=== PATIENT | male | born 1965 | race Caucasian/White ===

== ENCOUNTER → 2018-01-19 | Outpatient (CLI) | payer OTHER ==
[2018-01-19 13:11] LABS: CHOLESTEROL LEVEL 253 MG/DL (<200); CHOLESTEROL RISK RATIO 6.325 (<5); HDL CHOLESTEROL 40 MG/DL (>40); LDL CHOLESTEROL 162.2 MG/DL (<100); NON-HDL-C 213 MG/DL; TRIGLYCERIDES LEVEL 254 MG/DL (<150)
== END ==
LOC: M ADAMS 08:18
DX: E78.5 Hyperlipidemia, unspecified (principal)
CPT/HCPCS: 80061

== ENCOUNTER 2018-10-23 00:37 | Observation (INO) | payer OTHER ==
[~2018-10-23] VITALS: Ht 168.9 cm; Wt 101.7 kg
[2018-10-23] MEDS ORDERED: BENI40TA26 PO (00:41)
[2018-10-23] MEDS ORDERED: SPIR-10 PO (00:41)
[2018-10-23 02:52] LABS: BASO # 0.1 10^3/uL (0.0-0.2); BASO % 1.1 % (0.0-1.0); EOS # 0.2 10^3/uL (0.0-0.50); EOS % 3.3 % (0.0-3.0); HEMATOCRIT 42.5 % (42.0-52.0); HEMOGLOBIN 14.5 g/dl (13.5-17.5); LYMPH # 1.4 10^3/uL (1.5-4.5); LYMPH % 23.4 % (24.0-44.0); MEAN CORPUSCULAR HEMOGLOBIN 30.3 pg (27.0-33.0); MEAN CORPUSCULAR HGB CONC 34.1 g/dl (32.0-36.5); MEAN CORPUSCULAR VOLUME 88.9 fl (80.0-96.0); MONO # 0.6 10^3/uL (0.0-0.8); MONO % 9.2 % (0.0-5.0); NEUTROPHILS # 3.8 10^3/uL (1.8-7.7); NEUTROPHILS % 62.7 % (36.0-66.0); PLATELET COUNT, AUTOMATED 316 10^3/uL (150-450); RED BLOOD COUNT 4.78 10^6/uL (4.30-6.10); WHITE BLOOD COUNT 6.1 10^3/uL (4.0-10.0)
[2018-10-23 03:05] LABS: INR 0.92; PROTHROMBIN TIME 12.5 SECONDS (12.1-14.4)
[2018-10-23 03:06] LABS: PARTIAL THROMBOPLASTIN TIME 27.5 SECONDS (25.4-37.6)
[2018-10-23 03:17] LABS: ALT/SGPT 29 U/L (12-78); BILIRUBIN,DIRECT < 0.1 MG/DL (0.0-0.2); BILIRUBIN,TOTAL 0.4 MG/DL (0.2-1.0); BLOOD UREA NITROGEN 23 MG/DL (7-18); CALCIUM LEVEL 8.8 MG/DL (8.5-10.1); CARBON DIOXIDE LEVEL 26 MEQ/L (21-32); CHLORIDE LEVEL 109 MEQ/L (98-107); CPK CREATINE PHOSPHOKINASE 99 U/L (39-308); CREATININE FOR GFR 1.21 MG/DL (0.70-1.30); GLOMERULAR FILTRATION RATE > 60.0 (>56); GLUCOSE, FASTING 98 MG/DL (70-100); LIPASE 157 U/L (73-393); MB/CK RELATIVE INDEX 1.82 (< OR =4); POTASSIUM SERUM 4.7 MEQ/L (3.5-5.1); SODIUM LEVEL 141 MEQ/L (136-145); TOTAL PROTEIN 7.1 GM/DL (6.4-8.2); TROPONIN I < 0.02 NG/ML (< 0.10)
[2018-10-23] MEDS ORDERED: NS 1,000 ML IV ONE (05:00)
[2018-10-23 05:40] LABS: MB/CK RELATIVE INDEX 1.65 (< OR =4); TROPONIN I 0.08 NG/ML (< 0.10)
[2018-10-23] MEDS ORDERED: ASPIRIN 325 MG TAB PO ONE (06:00)
[2018-10-23 11:05] LABS: MB/CK RELATIVE INDEX 1.81 (< OR =4); TROPONIN I 0.14 NG/ML (< 0.10)
[2018-10-23] MEDS ORDERED: CLOPIDOGREL 300 MG TAB (PLAVIX) PO STA (12:51)
[2018-10-23] MEDS ORDERED: D3 S20002 PO (12:55)
[2018-10-23] MEDS ORDERED: APPLTAB2 PO (12:55)
[2018-10-23] MEDS ORDERED: GINS100C PO (12:55)
[2018-10-23] MEDS ORDERED: MEGA1CAP3 PO (12:55)
--- NOTE | 2018-10-23 13:23 | HPEPDOC ---
[facility] Medical History & Physical Date of Admission October 23, 2018 History and Physical CHIEF COMPLAINT: Chest pain HISTORY OF PRESENT ILLNESS: 53 yo male presents for chest pain. States last night he had dinner, 4-5 beers, then watched some movies. Went to bed around 12:30am and experienced some mid-epigastric pain, with right elbow pain. His p ain resolved spontaneously after 10-15 minutes. He states he is typically able to run for more than one minute, usually without chest pain or shortness of breath. However, on some occasions he will experience non-radiating sub-sternal chest pain, which resolves with rest. He states he had a cold about 6 weeks ago, which has resolved with a lingering dry cough. PAST MEDICAL HISTORY: 1. JUSTO - non-compliant with CPAP 2. DLP - trying to control with lifestyle modifications 3. HTN 4. Remote history of smoking - 2 pack years, quit 1991 FAMILY HISTORY: Father: [place] at age 74 ALLERGIES: Please see below. REVIEW OF SYSTEMS: Negative except as per HPI. HOME MEDICATIONS: Please see below. PHYSICAL EXAMINATION: VSS General: NAD, lying comfortably in bed HEENT:NC/AT, EOMI, PERRL Lungs: CTA B/L Heart: +S1S2, RRR Abd: soft, NT, +BS Ext: no edema LABORATORY DATA: See below. IMAGING: MICROBIOLOGY: Please see below. ASSESSMENT: 53 yo male for chest pain, concern for unstable angina #chest pain - for now concerns for unstable agina - plavix load, asa 325 - telemetry monitoring - repeat card markers - d/w cardiology, c/s pending, assistance appreciated #HTN - continue home Rx - aldactone, benacar #DLP - check lipid profile #JUSTO - likely needs another sleep study - o/p follow up - check noc ox #DVT prohylaxis - mechanical Vital Signs Vital Signs Date Time Temp Pulse Resp B/P (MAP) Pulse Ox O2 Delivery O2 Flow Rate FiO2 10/23/18 11:00 66 130/75 (93) 97 10/23/18 06:37 96.9 18 Room Air Laboratory Data Labs 24H Laboratory Tests 2 10/23/18 02:44: Immature Granulocyte % (Auto) 0.3, White Blood Count 6.1, Red Blood Count 4.78, Hemoglobin 14.5, Hematocrit 42.5, Mean Corpuscular Volume 88.9, Mean Corpuscular Hemoglobin 30.3, Mean Corpuscular Hemoglobin Concent 34.1, Red Cell Distribution Width 12.0, Platelet Count 316, Neutrophils (%) (Auto) 62.7, Lymphocytes (%) (Au to) 23.4L, Monocytes (%) (Auto) 9.2H, Eosinophils (%) (Auto) 3.3H, Basophils (%) (Auto) 1.1H, Neutrophils # (Auto) 3.8, Lymphocytes # (Auto) 1.4L, Monocytes # (Auto) 0.6, Eosinophils # (Auto) 0.2, Basophils # (Auto) 0.1, Nucleated Red Blood Cells % (auto) 0.0, Prothrombin Time 12.5, Prothromb Time International Ratio 0.92, Activated Partial Thromboplast Time 27.5, Anion Gap 6L, Glomerular Filtration Rate > 60.0, Calcium Level 8.8, Aspartate Amino Transf (AST/SGOT) 10, Alanine Aminotransferase (ALT/SGPT) 29, Alkaline Phosphatase 57, Total Bilirubin 0.4, Direct Bilirubin < 0.1, Total Creatine Kinase 99, Creatine Kinase MB 2.0, Creatine Kinase MB Relative Index 1.82, Troponin I < 0.02, Total Protein 7.1, Albumin 4.0, Albumin/Globulin Ratio 1.29, Lipase 157 10/23/18 04:53: Total Creatine Kinase 91, Creatine Kinase MB 2.0, Creatine Kinase MB Relative Index 1.65, Troponin I 0.08# 10/23/18 10:10: Total Creatine Kinase 83, Creatine Kinase MB 2.0, Creatine Kinase MB Relative Index 1.81, Troponin I 0.14#H CBC/BMP Laboratory Tests 10/23/18 02:44 Red Blood Count 4.78, Mean Corpuscular Volume 88.9, Mean Corpuscular Hemoglobin 30.3, Mean Corpuscular Hemoglobin Concent 34.1, Red Cell Distribution Width 12.0, Neutrophils (%) (Auto) 62.7, Lymphocytes (%) (Auto) 23.4 L, Monocytes (%) (Auto) 9.2 H, Eosinophils (%) (Auto) 3.3 H, Basophils (%) (Auto) 1.1 H, Neutrophils # (Auto) 3.8, Lymphocytes # (Auto) 1.4 L, Monocytes # (Auto) 0.6, Eo sinophils # (Auto) 0.2, Basophils # (Auto) 0.1 Home Medications Scheduled Cholecalciferol (Vitamin D3) (Vitamin D3) 2,000 Unit Capsule, 2,000 UNIT PO DAILY Cider Vinegar (Apple Cider Vinegar) 500 Mg Tablet, 500 MG PO DAILY Ginseng (Ginseng) Unknown Strength Capsule, 1 CAP PO DAILY Krill/Om-3/Dha/Epa/Phospho/Ast (Megared [place]-3 Krill Oil Sfgl) 1 Each Capsule, 1 CAP PO DAILY Olmesartan Medoxomil (Benicar) 40 Mg Tablet, 40 MG PO DAILY Spironolactone (Spironolactone) 25 Mg Tablet, 25 MG PO DAILY Allergies Coded Allergies: No Known Allergies (Unverified , 10/23/18) A-FIB/CHADSVASC A-FIB History Current/History of A-Fib/PAF?: No KYLER CANALES MD October 23, 2018 13:23
[2018-10-23 15:10] VITALS: BP 148/75
[2018-10-23 15:24] LABS: MB/CK RELATIVE INDEX 1.52 (< OR =4); TROPONIN I 0.13 NG/ML (< 0.10)
[2018-10-23] MEDS ORDERED: SLF 3 ML SYR IV PRN (15:45)
[2018-10-23 20:00] VITALS: BP 143/73
--- NOTE | 2018-10-23 21:14 | ECGEPIP ---
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
--- NOTE | 2018-10-23 21:15 | ECGEPIP ---
Stationary ECG Study [facility] - ED Test Date: 2018-10-23 Pat Name: CESAR LEBLANC Department: Room: - Gender: M Home Companion: CÉSAR : 1965 Requested By: ATA COTTER Order Number: [id number] Reading MD: Poonam Barba Measurements Intervals [place] Rate: 60 P: 28 [place]: 202 QRS: -1 QRSD: 107 T: 3 QT: 392 QTc: 395 Interpretive Statements SINUS RHYTHM MINIMAL VOLTAGE CRITERIA FOR LVH, CONSIDER NORMAL VARIANT SIMILAR 10/23/18 1:24 Electronically Signed On 10-23-2018 21:15:55 EDT by Poonam Barba
--- NOTE | 2018-10-23 21:17 | ECGEPIP ---
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
[2018-10-23] MEDS: SLF 3 ML SYR IV SCH (23:33)
[2018-10-23 23:59] VITALS: BP 124/63
[2018-10-24 04:00] VITALS: BP 146/74
[2018-10-24 05:04] LABS: HEMATOCRIT 38.2 % (42.0-52.0); HEMOGLOBIN 13.3 g/dl (13.5-17.5); MEAN CORPUSCULAR HEMOGLOBIN 30.4 pg (27.0-33.0); MEAN CORPUSCULAR HGB CONC 34.8 g/dl (32.0-36.5); MEAN CORPUSCULAR VOLUME 87.4 fl (80.0-96.0); PLATELET COUNT, AUTOMATED 279 10^3/uL (150-450); RED BLOOD COUNT 4.37 10^6/uL (4.30-6.10); WHITE BLOOD COUNT 6.1 10^3/uL (4.0-10.0)
[2018-10-24 05:28] LABS: BLOOD UREA NITROGEN 16 MG/DL (7-18); CALCIUM LEVEL 8.4 MG/DL (8.5-10.1); CARBON DIOXIDE LEVEL 27 MEQ/L (21-32); CHLORIDE LEVEL 111 MEQ/L (98-107); CK-MB VALUE MASS < 1.0 NG/ML (<3.6); CPK CREATINE PHOSPHOKINASE 66 U/L (39-308); CREATININE FOR GFR 1.14 MG/DL (0.70-1.30); GLOMERULAR FILTRATION RATE > 60.0 (>56); GLUCOSE, FASTING 109 MG/DL (70-100); MB/CK RELATIVE INDEX 1.52 (< OR =4); SODIUM LEVEL 142 MEQ/L (136-145); TROPONIN I 0.12 NG/ML (< 0.10)
[2018-10-24] MEDS: SLF 3 ML SYR IV SCH (06:58)
[2018-10-24 07:03] VITALS: BP 147/68
[2018-10-24 09:00] VITALS: BP 147/68
[2018-10-24] MEDS ORDERED: OLMESARTAN MEDOXOMIL 20 MG TAB (BENICAR) PO SCH (09:00)
[2018-10-24] MEDS ORDERED: ASPIRIN 81 MG ENTERIC TAB PO SCH (09:00)
[2018-10-24] MEDS ORDERED: ATORVASTATIN 20 MG TAB PO SCH (09:00)
[2018-10-24] MEDS ORDERED: SPIRONOLACTONE 25 MG TAB PO SCH (09:00)
[2018-10-24] MEDS ORDERED: ATOR1TAB21 PO (09:26)
[2018-10-24] MEDS ORDERED: ASPI81TAEC PO (09:26)
--- NOTE | 2018-10-24 09:31 | IPNPDOC ---
Text Note Date of Service The patient was seen on 10/24/18. NOTE CONSULTATION NOTE FOR DR. ESPITIA Mr. Logan is a 53 year old male who presented to the ED for epigastric discomfort. He states that two days ago he was outside carrying wood, and began having epigastric discomfort as pressure in his sub-sternal area. He states that it eventually subsided with rest. He then drank about 6 beers during the day and went into his home to sit on his recliner, after doing this he noted that the epigastric d/c began again. He stated that he then woke his up and decided to come to the ED., he noted that the discomfort was improving even during his car ride. He reports no dizziness prior to this event, but did note some pain in his right elbow that eventually subsided. Denied cough or SOB. Denied n/v. He apparently did have a similar episode when he ran up a hill at his house last weekend to get gas from a local filling station. But again this epigastric discomfort subsided. He states he drinks on the weekend about 5 beers a day, smoked and quit over 25 years ago, no drug use. He doesn't personally have a cardiac history but states his father from [place]. He states that his epigatric discomfort was not worsened by inspiration. PAST MEDICAL HISTORY: JUSTO non on CPAP, DLP, HTN, history of brief tobacco abuse with cessation in e FAMILY HISTORY: Father: [place] at age 74 REVIEW OF SYSTEMS: General: He states he feels well today, no fatigue and he is in good spirits Cardiac: No chest pain nor palpitations today, no syncope episodes Resp: No SOB or cough nor wheeze GI/: No n/v or diarrhea HOME MEDICATIONS: Please see below. PHYSICAL EXAMINATION: Please see below for vital signs General: NAD, laying in bed comfortable, conversant Cardiac: Normal s1 and s2., no murmurs, rubs or gallops Respiratory: CTA b/l, no wheezing, rales or rhonchi appreciated, no crackles Abdomen: nabsx4, no pain to palpitation, no rebound ridigty or guarding, no distension, no skin changes, no hepatosplenomegaly Extremities: no swelling, cyanosis or mottling LABORATORY DATA: See below. ASSESSMENT: Mr. Logan is a 53 year old male who presented to the ED with complaints of epigastric discomfort and found to have elevated troponin in the ED. 1. Atypcal chest pain -The patient describes atypical chest pain, this could represent acid refllux however he did have elevation of troponin on ED presentation, and they have been down trending. EKG's have been reviewed as well as telemetry, he is more sinus bradycardia than anything with some occasional PVC's. The patients lipid panel from January 2019 was reviewed and his HDL is 40 with an LDL of 162.2 and Total cholesterol of 253. From his present risk factors of HTN he would benefits from statin therapy, we will schedule atorvastatin 40 mg daily and ASA 81 mg. This lopez s been discussed both with patient and who is at bedside, and they have agreed to begin these medications. He is a non-smoker now and does not have diabetes, however his HTN and DLP are additive factors for his cardiac risk assessment. If he is able to walk around the unit this morning and feels well, he can be d/c from a cardiac standpoint, however it was discussed with patient he should have 7-10 day follow up at our office for stress test. He verbilized his understanding and had no questions. 2. HTN -His BP is acceptible at this time, continue with home Benacar and aldactone. 3. JUSTO -The patient should be compliant with his home CPAP A-FIB/CHADSVASC A-FIB History Current/History of A-Fib/PAF?: No VS,Fishbone, I+O VS, Fishbone, I+O Laboratory Tests 10/24/18 04:35 Red Blood Count 4.37, Mean Corpuscular Volume 87.4, Mean Corpuscular Hemoglobin 30.4, Mean Corpuscular Hemoglobin Concent 34.8, Red Cell Distribution Width 12.0, Calcium Level 8.4 L, Total Creatine Kinase 66 Vital Signs Date Time Temp Pulse Resp B/P (MAP) Pulse Ox O2 Delivery O2 Flow Rate FiO2 10/24/18 07:03 99.5 63 18 147/68 (94) 98 10/24/18 06:38 Room Air 21 I&O- Last 24 Hours up to 6 AM 10/24/18 06:00 Intake Total 1300 ml Output Total 625 ml Balance 675 ml GME ATTESTATION GME ATTESTATION My faculty preceptor for this patient encounter was physically present during the encounter and was fully available. All aspects of the patient interview, examination, medical decision making process, and medical care plan development were reviewed and approved by the faculty preceptor. The faculty preceptor is aware and concurs with the plan as stated in the body of this note and will attest to such by his/her cosignature. GME ATTESTATION GME ATTESTATION My faculty preceptor for this patient encounter was physically present during the encounter and was fully available. All aspects of the patient interview, examination, medical decision making process, and medical care plan development were reviewed and approved by the faculty preceptor. The faculty preceptor is aware and concurs with the plan as stated in the body of this note and will attest to such by his/her cosignature. NISHANT SINGH DO October 24, 2018 09:31
[2018-10-24 12:00] VITALS: BP 135/76
--- NOTE | 2018-10-24 13:29 | NOCOX ---
DATE OF PROCEDURE: 10/23/2018 The study was performed on 10/23/2018 at [facility] site. Of note on the summary report the data is accurate, however the date and time recorded on the summary report is incorrect. The actual date of the study was performed on the night of 10/23/2018. The study was done on room air. On the study the total valid sampling time was 6 hours and 38 minutes. The highest SPO2 was 100% and the lowest SPO2 was 83%. The highest pulse was 116 and the lower pulse was 44 beats per minute. The total time spent with an O2 sat less than 88% was 32 seconds. The desaturation event index was 5.1. On the graphical data, the patient had periodic episodes of desaturation and associated heart rate variability during some of these episodes. IMPRESSION: No significant nocturnal hypoxemia however, there were periodic episodic desaturations throughout the night suggestive of possible obstructive sleep apnea. Referral for further sleep testing if clinically indicated. YAIMA
--- NOTE | 2018-10-24 13:50 | DS.PDOC ---
Discharge Summary General Date of Admission October 23, 2018 at 12:55 Date of Discharge 10/24/18 Specialist/Consultants Involve: Demetria Oakley MD Discharge Summary PROCEDURES PERFORMED DURING STAY: [None]. ADMITTING DIAGNOSES: 1. Chest pain DISCHARGE DIAGNOSES: 1. Chest pain - atypical of angina 2. Troponinemia SECONDARY DIAGNOSES 1. JUSTO not using CPAP 2. HTN 3. DLP. COMPLICATIONS/CHIEF COMPLAINT: Chest Pain Elevated Troponin. HISTORY OF PRESENT ILLNESS: 53 yo male presents for chest pain. States last night he had dinner, 4-5 beers, then watched some movies. Went to bed around 1 2:30am and experienced some mid-epigastric pain, with right elbow pain. His pain resolved spontaneously after 10-15 minutes. He states he is typically able to run for more than one minute, usually without chest pain or shortness of breath. However, on some occasions he will experience non-radiating sub-sternal chest pain, which resolves with rest. He states he had a cold about 6 weeks ago, which has resolved with a lingering dry cough. HOSPITAL COURSE: Was admitted to PCU with telemetry monitoring. No acute events, no further episodes of chest pain. Troponins marginally downtrending, no ECG findings. Seen in consultation by cardiology, and discharged home with outpatient follow up for exercise stress testing. DISCHARGE MEDICATIONS: Please see below. ALLERGIES: Please see below. PHYSICAL EXAMINATION ON DISCHARGE: VITAL SIGNS: Please see below. GENERAL: NAD HEENT: NC/AT Lungs: CTA B/L Heart: +S1S2, RRR Abd: soft, NT, +BS Ext: no edema LABORATORY DATA: Please see below. ACTIVITY: [As tolerated]. DIET: DASH diet DISPOSITION: 01 Home, Self-Care. DISCHARGE INSTRUCTIONS: 1. Follow up cardiology as scheduled 2. Follow up PCP in 3-5 days 3. Recommend follow up pulmonology regarding JUSTO 4. Medications as directed DISCHARGE CONDITION: [Stable]. TIME SPENT ON DISCHARGE: Greater than 30 minutes. Vital Signs/I&Os Vital Signs Date Time Temp Pulse Resp B/P (MAP) Pulse Ox O2 Delivery O2 Flow Rate FiO2 10/24/18 12:00 98.3 65 18 135/76 (95) 96 10/24/18 06:38 Room Air 21 I&O- Last 24 Hours up to 6 AM 10/24/18 06:00 Intake Total 1300 ml Output Total 625 ml Balance 675 ml Laboratory Data Labs 24H Laboratory Tests 2 10/23/18 14:34: Total Creatine Kinase 79, Creatine Kinase MB 1.0, Creatine Kinase MB Relative Index 1.52, Troponin I 0.13H 10/24/18 04:35: Total Creatine Kinase 66, Creatine Kinase MB < 1.0, Creatine Kinase MB Relative Index 1.52, Troponin I 0.12H, Nucleated Red Blood Cells % (auto) 0.0, Anion Gap 4L, Glomerular Filtration Rate > 60.0, Blood Urea Nitrogen 16, Creatinine 1.14, Sodium Level 142, Potassium Level 4.0, Chloride Level 111H, Carbon Dioxide Level 27, Calcium Level 8.4L CBC/BMP Laboratory Tests 10/24/18 04:35 Red Blood Count 4.37, Mean Corpuscular Volume 87.4, Mean Corpuscular Hemoglobin 30.4, Mean Corpuscular Hemoglobin Concent 34.8, Red Cell Distribution Width 12.0, Calcium Level 8.4 L, Total Creatine Kinase 66 Discharge Medications Scheduled Aspirin (Aspirin EC) 81 Mg Tablet.dr, 81 MG PO DAILY Atorvastatin Calcium (Atorvastatin Calcium) 20 Mg Tablet, 40 MG PO QHS Cholecalciferol (Vitamin D3) (Vitamin D3) 2,000 Unit Capsule, 2,000 UNIT PO DAILY, (Reported) Cider Vinegar (Apple Cider Vinegar) 500 Mg Tablet, 500 MG PO DAILY, (Reported) Ginseng (Ginseng) Unknown Strength Capsule, 1 CAP PO DAILY, (Reported) Krill/Om-3/Dha/Epa/Phospho/Ast (Megared [place]-3 Krill Oil Sfgl) 1 Each Capsule, 1 CAP PO DAILY, (Reported) Olmesartan Medoxomil (Benicar) 40 Mg Tablet, 40 MG PO DAILY, (Reported) Spironolactone (Spironolactone) 25 Mg Tablet, 25 MG PO DAILY, (Reported) Allergies Coded Allergies: No Known Allergies (Unverified , 10/23/18) KYLER CANALES MD October 24, 2018 13:50
--- NOTE | 2018-10-24 22:05 | ECGEPIP ---
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
--- NOTE | 2018-10-25 23:53 | ECGEPIP ---
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
== END 2018-10-24 12:57 | disposition home or self-care (01) ==
LOC: M ED 00:37 → M ED INP 12:55 → M PCU 15:06
PROVIDERS: ADMIT Internal Medicine; ATTEND Internal Medicine
DX: R07.89 Other chest pain (principal); R79.89 Other specified abnormal findings of blood chemistry; G47.33 Obstructive sleep apnea (adult) (pediatric); I10 Essential (primary) hypertension; E78.49 Other hyperlipidemia; Z79.82 Long term (current) use of aspirin; Z79.899 Other long term (current) drug therapy; Z87.891 Personal history of nicotine dependence

== ENCOUNTER 2019-01-16 08:54 | Outpatient (RCR) | payer OTHER ==
--- NOTE | 2018-12-23 09:10 | CARECAPL ---
Assessment Account #s: Initial Assessment General Diagnoses: CABG Date of event: November 04, 2018 Physician: Demetria Oakley MD Allergies: Coded Allergies: No Known Allergies (Unverified , 10/23/18) Date Entered Program: Dec 23, 2018 Risk strat for cardiac event: Low Exercise Assessment: Initial Assessment Stress Test: MET Level (8) Exercise Prescription Plan educate and increase endurance and flexibility through monitored exercise Modalities initiated: Treadmill (will add speed 2.5 for 10 minutes), Nustep (will add Resistance 2 for 10 minutes), Arm Aerometer (barb add resistance of 1.0 for 8 minutes), Dumbells (will add 2 lb weights 10-15 reps), Recumbent Bike (will add Resistance of 2 for 8 minutes) Frequency: 2 Duration (Minutes) 30-60 minutes total exercise a day. 15-20 work intervals in minutes. prn rest intervals in minutes. Functional Capacity Goal Sustained Metabolic Equivalent of a task (MET) goal of 3.5-4.5 for 15-20 minutes. Intensity: 3-Moderate Progression (METS) Increase by: 0.5 METS every: 3-5 sessions Angina with ex: No Target Heart Rate rest + 35-40 per beta lisbeth therapy Resistance Training: Yes Weight (pounds): 2 Reps: 8-12 Hypertension: No Hypertension controlled with: Medication (metoprolol) Medications Scheduled Ascorbic Acid (Vitamin C), 500 MG PO DAILY, (Reported) Aspirin (Aspirin EC), 81 MG PO DAILY Atorvastatin Calcium (Atorvastatin Calcium), 40 MG PO QHS Cholecalciferol (Vitamin D3) (Vitamin D3), 2,000 UNIT PO DAILY, (Reported) Docusate Sodium (Stool Softener), 100 MG PO DAILY, (Reported) Ferrous Gluconate (Ferrous Gluconate), 324 MG PO BID, (Reported) Folic Acid (Folic Acid), 1 MG PO DAILY, (Reported) Krill/Om-3/Dha/Epa/Phospho/Ast (Megared [place]-3 Krill Oil Sfgl), 1 CAP PO DAILY, (Reported) Discontinued Medications Cider Vinegar (Apple Cider Vinegar), 500 MG PO DAILY, (Reported) Discontinued Reason: Pt states not taking Ginseng (Ginseng), 1 CAP PO DAILY, (Reported) Discontinued Reason: Pt states not taking Olmesartan Medoxomil (Benicar), 40 MG PO DAILY, (Reported) Discontinued Reason: Pt states not taking Spironolactone (Spironolactone), 25 MG PO DAILY, (Reported) Discontinued Reason: Pt states not taking Target Goals Individual exercise Rx (1) BP 140/90 or 130/80 if DM or CKD (1) Aerobic active 30+min 5 days per week (1) Nutrition Date: Dec 23, 2018 Assessment: Initial Assessment Lipid- med/supplement atorvastatin 40 mg Diabetes Diabetes: No Monitor Blood Sugar at home: No Weight Management Weight (lbs): 207.4 Height (inches): 66 Waist Circumference (Inches): 42 BMI: 33.4 Weight goal: 170 Special Diet: low salt, low-fat Vitamin/Supplements: Vitamin C Alcohol: daily Alcohol Type: beer Alcohol Amount: 3-4 Diet Access Tool: Rate your plate Score: 64 Referral to Diabetes education: No Referral to lipid clinic: No Referral to weight mangement p: No Target goal LDL-C<100 if triglycerides are >200 Non-HDL-C should be <130 (1) LDL-C<70 for high risk patients (4) HbA1c<7% (1) BMI<25 Waist cir<40in M/<35in F (1) Education Date: Dec 23, 2018 Assessment: Initial Assessment Knowledge Test Score: 10 Family Support: Yes Tobacco use: No (quit 28 years ago) Quit: >6 months Target Goals Complete cessation of tobacco use (1). Psychosocial Date: Dec 23, 2018 Assessment: Initial Assessment Psych Test (Initial/Discharge) Tool Used: CESD Score: 0 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 Physician Consult: No Physician Referral: No Psychotropic medication none Target Goal Assess presence or absence of depression using a valid screening tool (1). Maximize coping skills (2). Positive support system (2). Patient/Program Goal Preventative Medication: Yes Aspirin, Yes Beta blockade, Yes Statin/OTR lipid Lowering Fall Risk Assess: Yes (no fall risk) Provider Assessment Provider Assessment: Proceed with rehab Alaina Banuelos RN Dec 23, 2018 09:10
--- NOTE | 2019-01-13 13:15 | CARECAPL ---
Assessment Account #s: Re-Assessment I, Re-Assessment II General Diagnoses: CABG Date of event: November 04, 2018 Physician: Demetria Oakley MD Allergies: Coded Allergies: No Known Allergies (Unverified , 10/23/18) Date Entered Program: Dec 23, 2018 Risk strat for cardiac event: Low Exercise Date: Jan 13, 2019 Assessment: Re-Assessment I Exercise Prescription Plan educate and increase endurance, strength and flexibility through monitored exercise. Modalities initiated: Treadmill (speed 3.2 incline 2.0 for 10 minutes mets 4.33 RPE 2), Nustep (level 6 for 15 minutes mets 5.2 RPE 2.5), Arm Aerometer (resistance 3.0 for 10 minutes mets 5.3 RPE 3), Dumbells (5lb 2 sets of 12-15 reps RPE 2), Recumbent Bike (resistance 5 for 10 minutes mets 4.9 RPE 2.5) Frequency: 2-3 Duration (Minutes) 30-60 minutes total exercise a day. 15-20 work intervals in minutes. prn rest intervals in minutes. Functional Capacity Goal Sustained Metabolic Equivalent of a task (MET) goal of 5.0-6.0 for 15-20 minutes. Intensity: 3-Moderate Progression (METS) Increase by: 0.5 METS every: 3-5 sessions Angina with ex: No Target Heart Rate rest + 35-40 Resistance Training: Yes Weight (pounds): 5 Reps: 12-15 Hypertension: No Hypertension controlled with: Medication Resting 158/84 Peak Exercise BP 160/80 Meds metoprolol Medications Scheduled Ascorbic Acid (Vitamin C), 500 MG PO DAILY, (Reported) Aspirin (Aspirin EC), 81 MG PO DAILY Atorvastatin Calcium (Atorvastatin Calcium), 40 MG PO QHS Cholecalciferol (Vitamin D3) (Vitamin D3), 2,000 UNIT PO DAILY, (Reported) Docusate Sodium (Stool Softener), 100 MG PO DAILY, (Reported) Ferrous Gluconate (Ferrous Gluconate), 324 MG PO BID, (Reported) Folic Acid (Folic Acid), 1 MG PO DAILY, (Reported) Krill/Om-3/Dha/Epa/Phospho/Ast (Megared [place]-3 Krill Oil Sfgl), 1 CAP PO DAILY, (Reported) Current BP 132/70 Med Change: No 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 Education: Self pulse (patient demonstrated with minimal verbal cueing.), Ex safety (Patient verbalized to stay hydrated and wear comfortable clothing and shoes.), Low NA diet (Patient stated using Mrs. Jensen vs. Salt is a better option to lower your salt intake in your diet.), RPE Scale (patient demonstrates independence), Equipment orientation (patient was shown equipment and is able to use with minimal verbal cueing.), warm up/cool down (patient demonstrates independence), Understand BP (Patient verbalized understanding of Blood pressure numbers of less than 140/90) Target Goals Individual exercise Rx (1) BP 140/90 or 130/80 if DM or CKD (1) Aerobic active 30+min 5 days per week (1) Nutrition Date: Jan 13, 2019 Assessment: Re-Assessment I Med Change: No Diabetes Diabetes: No Current Weight (pounds): 204.6 Weight Goal 160 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 Psychosocial Date: Jan 13, 2019 Assessment: Re-Assessment I Med Change: No Education Education: Coping Techniques (Patient stated he would make time for himself to exercise and eat healthier. ), S/S depression (Patient was able to verbalize s/s of depression such as withdrawal, tearfulness and loss appetite.), Relaxation Techniques (Patient stated he would read a book, listen to music or mediate to relieve stress.) Education Goals Met: Yes Target Goal Assess presence or absence of depression using a valid screening tool (1). Maximize coping skills (2). Positive support system (2). Patient/Program Goal Preventative Medication: Yes Aspirin, Yes Beta blockade, Yes Statin/OTR lipid Lowering Fall Risk Assess: Yes (no fall risk) Provider Assessment Session Number: 6 Provider Assessment: Proceed with rehab (progressing) Alaina Banuelos RN Jan 13, 2019 13:15
[~2019-01-16 08:54] MED LIST: APPLTAB2 PO; ASPI81TAEC PO; ATOR1TAB21 PO; BENI40TA26 PO; D3 S20002 PO; FERR32TA PO; FOLI1TAB11 PO; GINS100C PO; MEGA1CAP3 PO; MM S100C PO; SPIR-10 PO; VITA500C24 PO
== END 2019-01-18 ==
LOC: M CR 08:54
PROVIDERS: ATTEND Internal Medicine Cardiovascular Disease
DX: Z95.1 Presence of aortocoronary bypass graft (principal)

== ENCOUNTER → 2019-02-15 | Outpatient (REF) | payer OTHER ==
[~2019-02-15] MED LIST changes: +LISI10TA4 PO
[2019-02-15 12:32] LABS: ALBUMIN 3.6 GM/DL (3.2-5.2); ALT/SGPT 31 U/L (12-78); BILIRUBIN,TOTAL 0.6 MG/DL (0.2-1.0); BLOOD UREA NITROGEN 16 MG/DL (7-18); CALCIUM LEVEL 9.2 MG/DL (8.5-10.1); CARBON DIOXIDE LEVEL 32 MEQ/L (21-32); CHLORIDE LEVEL 108 MEQ/L (98-107); CHOLESTEROL LEVEL 142 MG/DL (<200); CHOLESTEROL RISK RATIO 3.155 (<5); GLOMERULAR FILTRATION RATE > 60.0 (>56); GLUCOSE, FASTING 96 MG/DL (70-100); HDL CHOLESTEROL 45 MG/DL (>40); LDL CHOLESTEROL 80 MG/DL (<100); NON-HDL-C 97 MG/DL; POTASSIUM SERUM 4.8 MEQ/L (3.5-5.1); SODIUM LEVEL 143 MEQ/L (136-145); TOTAL PROTEIN 6.5 GM/DL (6.4-8.2); TRIGLYCERIDES LEVEL 85 MG/DL (<150)
== END ==
LOC: M LABDRWAD 12:08
PROVIDERS: ATTEND Nurse Practitioner Family
DX: E78.5 Hyperlipidemia, unspecified (principal)

== ENCOUNTER 2019-02-17 08:08 | Outpatient (RCR) | payer OTHER ==
--- NOTE | 2019-02-08 15:36 | CARECAPL ---
Assessment Account #s: Re-Assessment II General Diagnoses: CABG Date of event: November 04, 2018 Physician: Demetria Oakley MD Allergies: Coded Allergies: No Known Allergies (Unverified , 10/23/18) Date Entered Program: Dec 23, 2018 Risk strat for cardiac event: Low Exercise Date: Feb 08, 2019 Assessment: Re-Assessment II Exercise Prescription Plan TO EDUCATE AND BUILD ENDURANCE THROUGH MONITORED EXERCISE Modalities initiated: Treadmill (METS=5.13/RPE=2), Nustep (METS=7.3/RPE=3), Arm Aerometer (METS=6.0/RPE=2.5), Dumbells (10#/RPE=2.5), Recumbent Bike (METS=6.0/RPE=2.5), Elliptimill (METS=3.5/RPE=2.5) Frequency: 3 Duration (Minutes) 30-60 minutes total exercise a day. 12-15 work intervals in minutes. 5 MIN PRN rest intervals in minutes. Functional Capacity Goal Sustained Metabolic Equivalent of a task (MET) goal of 5.5-6.5 for 15-20 minutes. Intensity: 3-Moderate Progression (METS) Increase by: 0.5 METS every: 5 sessions Angina with ex: No Target Heart Rate REST+35-40 Resistance Training: Yes Weight (pounds): 10 Reps: 12-15 Hypertension: Yes Hypertension controlled with: Medication Resting 162/90 Peak Exercise BP 210/100 Medications Scheduled Ascorbic Acid (Vitamin C), 500 MG PO DAILY, (Reported) Aspirin (Aspirin EC), 81 MG PO DAILY Atorvastatin Calcium (Atorvastatin Calcium), 40 MG PO QHS Cholecalciferol (Vitamin D3) (Vitamin D3), 2,000 UNIT PO DAILY, (Reported) Docusate Sodium (Stool Softener), 100 MG PO DAILY, (Reported) Ferrous Gluconate (Ferrous Gluconate), 324 MG PO BID, (Reported) Folic Acid (Folic Acid), 1 MG PO DAILY, (Reported) Krill/Om-3/Dha/Epa/Phospho/Ast (Megared [place]-3 Krill Oil Sfgl), 1 CAP PO DAILY, (Reported) Current BP 112/88 AFTER EXERCISE Med Change: No 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 Home exercise: Type (RUNNING, HOME EXERCISE EQUIPMENT), Frequency (3-5 DAYS PER WEEK), Duration (30-60 MINUTES) Resistance Training: Yes Education: Self pulse (DEMONSTRATED SELF PULSE INDEPENDENTLY), Ex safety (PT VERBALIZES NEED FOR ADEQUATE HYDRATION AND COMFORTABLE SHOES AND CLOTHING), S/S to report (VERBALIZES UNDERSTANDING OF REPORTING CHEST PAIN/SOB), Low NA diet (PT VERBALIZES UNDERSTANDING OF LOW SALT DIET/USES MRS. SHIN), RPE Scale (DEMONSTRATES INDEPENDENTLY), Equipment orientation (USES EQUIPMENT IND EPENDENTLY), warm up/cool down (INDEPENDENTLY WARMS UP AND COOLS DOWN), Understand BP (PATIENT HAS UNDERSTANDING OF B/P LOWER 140/90), Physical Active (PATIENT VERBALIZES UNDERSTANDING OF IMPORTANCE OF CONTINUED EXERCISE AFTER FINISHING CARDIAC REHAB) Target Goals Individual exercise Rx (1) BP 140/90 or 130/80 if DM or CKD (1) Aerobic active 30+min 5 days per week (1) Nutrition Date: Feb 08, 2019 Assessment: Re-Assessment II Lipid- med/supplement ATORVASTATIN Med Change: No Diabetes Diabetes: No Monitor Blood Sugar at home: No Medication Change: No Blood sugar in range: No Weight Management Weight (lbs): 203.8 Special Diet: low salt, low-fat Vitamin/Supplements: Vitamin C Alcohol: special Current Weight (pounds): 203.8 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 Skilled Nursing Case Manager Consult: No Nurse/patient discussion: Yes Dietary Goals HEART HEALTHY CHOICES, SMALLER PORTIONS Diet Class: Yes (HAS MET WITH 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 DUPLICATOR) Referral to Diabetes education: No Referral to lipid clinic: No Referral to weight mangement p: No Education Eating Healthy Target goal LDL-C<100 if triglycerides are >200 Non-HDL-C should be <130 (1) LDL-C<70 for high risk patients (4) HbA1c<7% (1) BMI<25 Waist cir<40in M/<35in F (1) Education Date: Feb 08, 2019 Assessment: Re-Assessment II Learning Barriers: ready Family Support: Yes Tobacco use: No Tobacco Use Smokeless tobacco: No 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 Referral to smoking cessation: No Individual education and couns: No Tobacco Adjunct: No Education class schedule given: No Attended education classes: No Education: CAD, Risk factors, med compliance, cardiac A&P, Angina S/S, Sexuality Target Goals Complete cessation of tobacco use (1). Psychosocial Date: Feb 08, 2019 Assessment: Re-Assessment II 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 Physician Consult: No Physician Referral: No Med Change: No Stress Management Class: No Uses Stress Management Skills: Yes Education Education: Coping Techniques (PT NOTED IMPORTANCE OF TAKING PERSONAL TIME FOR HIMSELF), S/S depression (PT VERBALIZES UNDERSTANDING OF S/S OF DEPRESION SUCH TEARFULNESS, LOSS OF INTEREST IN ACTIVITIES), Relaxation Techniques (PT STATES IMPORTANCE OF QUIET TIME, READING A BOOK, LISTENING TO MUSIC) Target Goal Assess presence or absence of depression using a valid screening tool (1). Maximize coping skills (2). Positive support system (2). Patient/Program Goal Preventative Medication: Yes Aspirin, Yes Beta blockade, Yes Statin/OTR lipid Lowering Fall Risk Assess: Yes (NOT A FALL RISK) Provider Assessment Session Number: 10 Provider Assessment: Proceed with rehab (GOOD ATTENDENCE) Forrest Morales RN Feb 08, 2019 15:36
[~2019-02-17 08:08] MED LIST changes: -LISI10TA4 PO
== END 2019-02-18 ==
LOC: M CR 08:08
PROVIDERS: ATTEND Internal Medicine Cardiovascular Disease
DX: Z95.1 Presence of aortocoronary bypass graft (principal)

== ENCOUNTER 2019-03-17 08:48 | Outpatient (RCR) | payer OTHER ==
--- NOTE | 2019-03-06 17:03 | CARECAPL ---
Assessment Account #s: Re-Assessment II (REASSESSMENT III) General Diagnoses: CABG Date of event: November 04, 2018 Physician: Demetria Oakley MD Allergies: Coded Allergies: No Known Allergies (Unverified , 10/23/18) Date Entered Program: Dec 23, 2018 Risk strat for cardiac event: Low Exercise Date: Mar 06, 2019 Assessment: Re-Assessment II (REASSESSMENT III) Stages of change: action Exercise Prescription Plan TO EDUCATE AND BUILD ENDURANCE THROUGH MONITORED EXERCISE Modalities initiated: Treadmill (METS=6.53/RPE=2), Nustep (METS=9.8/RPE=3), Arm Aerometer (METS=6.8/RPE=2.5), Dumbells (12#/RPE=2), Recumbent Bike (METS=7.7/RPE=3), Elliptimill (METS=4.0/RPE=2) Frequency: 3 Duration (Minutes) 30 - 60 minutes total exercise a day. 15 - 20 work intervals in minutes. PRN rest intervals in minutes. Functional Capacity Goal Sustained Metabolic Equivalent of a task (MET) goal of 7.0-8.0 for 15-20 minutes. Intensity: 3-Moderate Progression (METS) Increase by: METS every: sessions Angina with ex: No Target Heart Rate +35-40 BASED ON BETA SHELDON THERAPY Resistance Training: Yes Weight (pounds): 12 Reps: 12-15 Hypertension: Yes Hypertension controlled with: Medication Resting 156/78 Peak Exercise BP 196/82 Medications Scheduled Ascorbic Acid (Vitamin C), 500 MG PO DAILY, (Reported) Aspirin (Aspirin EC), 81 MG PO DAILY Atorvastatin Calcium (Atorvastatin Calcium), 40 MG PO QHS Cholecalciferol (Vitamin D3) (Vitamin D3), 2,000 UNIT PO DAILY, (Reported) Docusate Sodium (Stool Softener), 100 MG PO DAILY, (Reported) Ferrous Gluconate (Ferrous Gluconate), 324 MG PO BID, (Reported) Folic Acid (Folic Acid), 1 MG PO DAILY, (Reported) Krill/Om-3/Dha/Epa/Phospho/Ast (Megared [place]-3 Krill Oil Sfgl), 1 CAP PO DAILY, (Reported) Lisinopril (Lisinopril), 10 MG PO DAILY, (Reported) Current BP 138/80 Med Change: No 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 Home exercise: Type (RUNNING,HOME EXERCISE EQUIPMENT), Frequency (3-5 DAYS PER WEEK), Duration (30-60 MINUTES) Resistance Training: Yes Education: Self pulse (DEMONSTRATES SELF PULSE INDEPENDENTLY), Ex safety (VERBALIZES UNDERSTANDING OF PROPER HYDRATION AND COMFORTABLE CLOTHING AND SHOES FOR EXERCISE), S/S to report (VERBALIZES UNDERSTANDING OF REPORTING CHEST PAIN/SOB), Low NA diet (VERBALIZES UNDERSTANDING OF LOW SALT DIET/ USING SPICES OR MRS. KIP ALTERNATIVES), BP medication (REVIEWED ACTION OF LISINOPRIL), RPE Scale (DEMONSTRATES DIFFICULTY SCALE INDEPENDENTLY), Equipment orientation (USES EQUIPMENT INDEPENDENTLY), warm up/cool down (VERBALIZES UNDERSTANDING OF SAFE EXERCISE/WARM UP / COOL DOWN PRIOR TO AND FOLLOWING EXERCISE), Understand BP (VERBALIZES UNDERSTANDING B/P SHOULD BE BELOW 140/90), Physical Active (VERBALIZES UNDERSTANDING OF IMPORTANCE OF CONTINUED EXERCISE FOLLOWING CARDIAC REHAB PROGRAM) Education Goals Met: Yes (PROGRESSING TOWARD GOALS) Target Goals Individual exercise Rx (1) BP 140/90 or 130/80 if DM or CKD (1) Aerobic active 30+min 5 days per week (1) Nutrition Date: Mar 06, 2019 Assessment: Re-Assessment II (REASSESSMENT III) Lipid- med/supplement ATORVASTATIN 40 MG DAILY Med Change: No Diabetes Diabetes: No Monitor Blood Sugar at home: No Medication Change: No Special Diet: low salt, low-fat Vitamin/Supplements: Vitamin C Alcohol: special Current Weight (pounds): 206 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 Analyst Consult: No Nurse/patient discussion: Yes Dietary Goals SMALLER PORTIONS/HEART HEALTHY CHOICES Diet Class: Yes (HAS MET WITH LAUNDRY HOUSEKEEPING AIDE) Referral to Diabetes education: No Referral to lipid clinic: No Referral to weight mangement p: No Education Eating Healthy Education Goals Met: Yes (PROGRESSING TOWARD GOALS) Target goal LDL-C<100 if triglycerides are >200 Non-HDL-C should be <130 (1) LDL-C<70 for high risk patients (4) HbA1c<7% (1) BMI<25 Waist cir<40in M/<35in F (1) Education Date: Mar 06, 2019 Assessment: Re-Assessment II (REASSESSMENT III) Learning Barriers: ready Stages of change: action Family Support: Yes Tobacco use: No Tobacco Use Smokeless tobacco: No 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 Referral to smoking cessation: No Individual education and couns: No Tobacco Adjunct: No Education class schedule given: No Attended education classes: No Education: CAD, Risk factors, med compliance (VERBALIZES UNDERSTANDING OF IMPORTANCE OF MEDICATION COMPLIANCE/REVIEWED LISINOPRIL), cardiac A&P, Angina S/S, Sexuality Education Goals Met: Yes (PROGRESSING TOWARD GOALS) Target Goals Complete cessation of tobacco use (1). Psychosocial Date: Mar 06, 2019 Assessment: Re-Assessment II (REASSESSMENT III) Stages of change: action 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 Physician Consult: No Physician Referral: No Med Change: No Stress Management Class: No Uses Stress Management Skills: Yes Education Education: Coping Techniques, S/S depression, Relaxation Techniques Education Goals Met: Yes (PROGRESSING TOWARD GOALS) Target Goal Assess presence or absence of depression using a valid screening tool (1). Maximize coping skills (2). Positive support system (2). Patient/Program Goal Preventative Medication: Yes Aspirin, Yes Beta blockade, Yes Statin/OTR lipid Lowering Fall Risk Assess: Yes (NOT A FALL RISK) Provider Assessment Session Number: 16 Provider Assessment: Proceed with rehab Forrest Morales RN Mar 06, 2019 17:03
[~2019-03-17 08:48] MED LIST changes: +LISI10TA4 PO
== END 2019-03-20 ==
LOC: M CR 08:48
PROVIDERS: ATTEND Internal Medicine Cardiovascular Disease
DX: Z95.1 Presence of aortocoronary bypass graft (principal)

== ENCOUNTER 2019-03-22 08:23 | Outpatient (RCR) | payer OTHER ==
--- NOTE | 2019-03-22 10:40 | CARECAPL ---
Assessment Account #s: Discharge General Diagnoses: CABG Date of event: November 04, 2018 Physician: Demetria Oakley MD Allergies: Coded Allergies: No Known Allergies (Unverified , 10/23/18) Date Entered Program: Dec 23, 2018 Risk strat for cardiac event: Low Exercise Date: Mar 22, 2019 Assessment: Followup/Discharge Stages of change: maintenance Exercise Prescription Plan educate on cardiovascular disease and increase endurance, strength and flexibility through monitored exercise program. Modalities initiated: Treadmill (speed 4.2 incline 3.0 for 15 minutes Mets 5.95 RPE 3), Concept 2 Rower (resistance of 10 for 10 minutes. Met 6.0 RPE 2.5), Nustep (resistance of 10 for 15 minutes mets 6.4 RPE 3), Arm Aerometer (res istance of 7 for 10 minutes mets 5.3 RPE 3), Dumbells (12 pounds 2 sets 15 reps RPE 2.5), Recumbent Bike (resistance of 10 for 10 minutes mets 7.7 RPE 2.5) Frequency: 2 Duration (Minutes) 30 - 60 minutes total exercise a day. 15 - 20 work intervals in minutes. PRN rest intervals in minutes. Functional Capacity Goal Sustained Metabolic Equivalent of a task (MET) goal of for minutes. Progression (METS) Increase by: 7-8 METS every: 3-5 sessions Angina with ex: No Target Heart Rate 100-133 age predicted 60%-80% Resistance Training: Yes Weight (pounds): 12 Reps: 12-15 Hypertension: Yes Hypertension controlled with: Medication Resting 156/80 Peak Exercise BP 160/90 Meds Lisinopril Medications Scheduled Ascorbic Acid (Vitamin C), 500 MG PO DAILY, (Reported) Aspirin (Aspirin EC), 81 MG PO DAILY Atorvastatin Calcium (Atorvastatin Calcium), 40 MG PO QHS Cholecalciferol (Vitamin D3) (Vitamin D3), 2,000 UNIT PO DAILY, (Reported) Docusate Sodium (Stool Softener), 100 MG PO DAILY, (Reported) Ferrous Gluconate (Ferrous Gluconate), 324 MG PO BID, (Reported) Folic Acid (Folic Acid), 1 MG PO DAILY, (Reported) Krill/Om-3/Dha/Epa/Phospho/Ast (Megared [place]-3 Krill Oil Sfgl), 1 CAP PO DAILY, (Reported) Lisinopril (Lisinopril), 10 MG PO DAILY, (Reported) Current BP 156/80 Med Change: Yes (lisinopril was added) Education Goals Met: Yes Target Goals Individual exercise Rx (1) BP 140/90 or 130/80 if DM or CKD (1) Aerobic active 30+min 5 days per week (1) Nutrition Date: Mar 22, 2019 Assessment: Followup/Discharge Stages of change: maintenance Lipids Total Cholesterol (142), Low Density Lipids (LDL) (80), Triglycerides (85), Duration Med Change: No Monitor Blood Sugar at home: No Medication Change: No Weight Management Weight (lbs): 205 Height (inches): 66 Waist Circumference (Inches): 39 BMI: 33.08 Current Weight (pounds): 205 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 Child Daycare Worker Consult: No Nurse/patient discussion: Yes Dietary Goals Eat healthier portions Diet Class: Yes Referral to Diabetes education: No Referral to lipid clinic: No Referral to weight mangement p: No Education Goals Met: Yes Target goal LDL-C<100 if triglycerides are >200 Non-HDL-C should be <130 (1) LDL-C<70 for high risk patients (4) HbA1c<7% (1) BMI<25 Waist cir<40in M/<35in F (1) Education Date: Mar 22, 2019 Assessment: Followup/Discharge Knowledge Test Score: 8 Stages of change: maintenance Family Support: Yes Education Goals Met: Yes Target Goals Complete cessation of tobacco use (1). Psychosocial Date: Mar 22, 2019 Assessment: Followup/Discharge Psych Test (Initial/Discharge) Tool Used: CESD Score: 0 Stages of change: maintenance Med Change: No Stress Management Class: Yes Uses Stress Management Skills: Yes Education Goals Met: Yes Target Goal Assess presence or absence of depression using a valid screening tool (1). Maximize coping skills (2). Positive support system (2). Patient/Program Goal Preventative Medication: Yes Aspirin, Yes MARTHA Inhibitor, Yes Statin/OTR lipid Lowering Fall Risk Assess: Yes (negative for fall risks) Provider Assessment Session Number: 21 Provider Assessment: Proceed with rehab (discharge from program) Alaina Banuelos RN Mar 22, 2019 10:40
== END 2019-04-20 ==
LOC: M CR 08:23
PROVIDERS: ATTEND Internal Medicine Cardiovascular Disease
DX: Z95.1 Presence of aortocoronary bypass graft (principal)

== ENCOUNTER → 2020-02-12 | Outpatient (REF) | payer OTHER ==
[2020-02-12 15:06] LABS: ALBUMIN 3.6 GM/DL (3.2-5.2); ALT/SGPT 37 U/L (12-78); BILIRUBIN,TOTAL 0.8 MG/DL (0.2-1.0); BLOOD UREA NITROGEN 16 MG/DL (7-18); CALCIUM LEVEL 8.6 MG/DL (8.5-10.1); CARBON DIOXIDE LEVEL 29 MEQ/L (21-32); CHLORIDE LEVEL 109 MEQ/L (98-107); CHOLESTEROL LEVEL 123 MG/DL (<200); CHOLESTEROL RISK RATIO 2.617 (<5); CREATININE FOR GFR 1.06 MG/DL (0.70-1.30); GLOMERULAR FILTRATION RATE > 60.0 (>56); GLUCOSE, FASTING 100 MG/DL (70-100); HDL CHOLESTEROL 47 MG/DL (>40); LDL CHOLESTEROL 60 MG/DL (<100); NON-HDL-C 76 MG/DL; POTASSIUM SERUM 4.5 MEQ/L (3.5-5.1); PROSTATIC SPECIFIC AG MONITOR 1.17 NG/ML (< 4.00); SODIUM LEVEL 141 MEQ/L (136-145); TOTAL PROTEIN 6.5 GM/DL (6.4-8.2); TRIGLYCERIDES LEVEL 81 MG/DL (<150)
== END ==
LOC: M LABDRWAD 08:09
PROVIDERS: ATTEND Nurse Practitioner Family
DX: E78.5 Hyperlipidemia, unspecified (principal); N40.0 Benign prostatic hyperplasia without lower urinary tract symptoms

== ENCOUNTER → 2021-02-19 | Outpatient (REF) | payer OTHER ==
[~2021-02-19] MED LIST changes: +ASPI-569 PO; -ASPI81TAEC PO; +LISI10TA22 PO; -LISI10TA4 PO
[2021-02-19 11:18] LABS: BLOOD UREA NITROGEN 24 MG/DL (7-18); CARBON DIOXIDE LEVEL 30 MEQ/L (21-32); CHLORIDE LEVEL 109 MEQ/L (98-107); CREATININE FOR GFR 1.13 MG/DL (0.70-1.30); GLOMERULAR FILTRATION RATE > 60.0 (>56); GLUCOSE, FASTING 106 MG/DL (70-100); SODIUM LEVEL 141 MEQ/L (136-145)
== END ==
LOC: M LABDRWAD 10:10
PROVIDERS: ATTEND Nurse Practitioner Family
DX: I10 Essential (primary) hypertension (principal)

== ENCOUNTER → 2021-03-17 | Outpatient (REF) | payer OTHER | LOC: M LABDRWAD 14:42 | PROVIDERS: ATTEND Urology | DX: N40.1 Benign prostatic hyperplasia with lower urinary tract symptoms (principal); R35.1 Nocturia ==

== ENCOUNTER → 2022-03-12 | Outpatient (REF) | payer OTHER ==
[~2022-03-12] MED LIST changes: -BENI40TA26 PO; +OLME40TA56 PO
[2022-03-13 17:08] LABS: PSA TOTAL 1.3 ng/mL (0.0-4.0)
== END ==
LOC: M LABDRWAD 12:45
PROVIDERS: ATTEND Urology
DX: N40.1 Benign prostatic hyperplasia with lower urinary tract symptoms (principal)

== ENCOUNTER → 2022-05-18 | Outpatient (REF) | payer OTHER ==
[2022-05-18 14:22] LABS: HEMATOCRIT 45.6 % (42.0-52.0); HEMOGLOBIN 14.8 g/dl (13.5-17.5); MEAN CORPUSCULAR HEMOGLOBIN 30.2 pg (27.0-33.0); MEAN CORPUSCULAR HGB CONC 32.5 g/dl (32.0-36.5); MEAN CORPUSCULAR VOLUME 93.1 fl (80.0-96.0); PLATELET COUNT, AUTOMATED 265 10^3/uL (150-450); WHITE BLOOD COUNT 6.9 10^3/uL (4.0-10.0)
[2022-05-18 15:57] LABS: CHLORIDE LEVEL 106 MMOL/L (98-107); SODIUM LEVEL 141 MMOL/L (136-145)
[2022-05-18 15:58] LABS: ALBUMIN 3.9 G/DL (3.2-5.2); CARBON DIOXIDE LEVEL 26 MMOL/L (20-31)
[2022-05-18 16:02] LABS: CALCIUM LEVEL 9.3 MG/DL (8.5-10.1)
[2022-05-18 16:03] LABS: BLOOD UREA NITROGEN 19 MG/DL (9-23); GLUCOSE, FASTING 117 MG/DL (60-100); TRIGLYCERIDES LEVEL 50 MG/DL (<150)
[2022-05-18 16:04] LABS: ALKALINE PHOSPHATASE 58 U/L (46-116); CHOLESTEROL LEVEL 123 MG/DL (<200)
[2022-05-18 16:05] LABS: ALT/SGPT 35 U/L (7.0-40); AST/SGOT 20 U/L (<34); BILIRUBIN,TOTAL 0.6 MG/DL (0.3-1.2); CHOLESTEROL RISK RATIO 2.77 (<5); HDL CHOLESTEROL 44.4 MG/DL (>40); LDL CHOLESTEROL 68.6 MG/DL (<100); NON-HDL-C 79 MG/DL; TOTAL PROTEIN 6.5 G/DL (5.7-8.2)
[2022-05-18 16:20] LABS: CREATININE FOR GFR 0.98 MG/DL (0.70-1.30); GLOMERULAR FILTRATION RATE > 60.0 (>56)
[2022-05-18 16:21] LABS: POTASSIUM SERUM 5.1 MMOL/L (3.5-5.1)
== END ==
LOC: M LABDRWAD 12:48
PROVIDERS: ATTEND Physician Assistant
DX: I25.10 Atherosclerotic heart disease of native coronary artery without angina pectoris (principal); E78.5 Hyperlipidemia, unspecified

== ENCOUNTER → 2023-02-12 | Outpatient (REF) | payer OTHER ==
[2023-02-12 13:24] LABS: BASO # 0.1 10^3/uL (0.0-0.2); BASO % 1.3 % (0.0-1.0); EOS # 0.2 10^3/uL (0.0-0.5); EOS % 2.8 % (0.0-3.0); HEMATOCRIT 42.2 % (42.0-52.0); HEMOGLOBIN 14.2 g/dl (13.5-17.5); LYMPH # 1.1 10^3/uL (1.5-5.0); LYMPH % 19.9 % (24.0-44.0); MEAN CORPUSCULAR HEMOGLOBIN 30.5 pg (27.0-33.0); MEAN CORPUSCULAR HGB CONC 33.6 g/dl (32.0-36.5); MEAN CORPUSCULAR VOLUME 90.6 fl (80.0-96.0); MONO # 0.4 10^3/uL (0.0-0.8); MONO % 8.2 % (2.0-8.0); NEUTROPHILS # 3.6 10^3/uL (1.5-8.5); NEUTROPHILS % 67.6 % (36.0-66.0); PLATELET COUNT, AUTOMATED 279 10^3/uL (150-450); RED BLOOD COUNT 4.66 10^6/uL (4.30-6.10); WHITE BLOOD COUNT 5.3 10^3/uL (4.0-10.0)
[2023-02-12 13:56] LABS: HEMOGLOBIN A1c 5.2 % (4.0-6.0)
[2023-02-12 14:08] LABS: ALBUMIN 3.7 G/DL (3.2-5.2); ALKALINE PHOSPHATASE 57 U/L (46-116); ALT/SGPT 23 U/L (7.0-40); AST/SGOT 9 U/L (<34); BILIRUBIN,TOTAL 1.1 MG/DL (0.3-1.2); BLOOD UREA NITROGEN 19 MG/DL (9-23); CALCIUM LEVEL 8.6 MG/DL (8.5-10.1); CARBON DIOXIDE LEVEL 26 MMOL/L (20-31); CHLORIDE LEVEL 109 MMOL/L (98-107); CHOLESTEROL LEVEL 125 MG/DL (<200); CHOLESTEROL RISK RATIO 2.87 (<5); CREATININE FOR GFR 0.98 MG/DL (0.70-1.30); GLOMERULAR FILTRATION RATE > 60.0 (>56); GLUCOSE, FASTING 99 MG/DL (60-100); HDL CHOLESTEROL 43.5 MG/DL (>40); LDL CHOLESTEROL 67.9 MG/DL (<100); NON-HDL-C 81.5 MG/DL; POTASSIUM SERUM 4.3 MMOL/L (3.5-5.1); SODIUM LEVEL 140 MMOL/L (136-145); THYROID STIMULATING HORMONE 1.627 uIU/ML (0.55-4.78); TOTAL PROTEIN 6.3 G/DL (5.7-8.2); TRIGLYCERIDES LEVEL 68 MG/DL (<150)
== END ==
LOC: M LABDRWAD 12:28
PROVIDERS: ATTEND Nurse Practitioner Family
DX: Z00.00 Encounter for general adult medical examination without abnormal findings (principal); E78.5 Hyperlipidemia, unspecified; R73.01 Impaired fasting glucose
CPT/HCPCS: 36415; 80053; 80061; 83036; 84443; 85025; G0103

== ENCOUNTER → 2024-03-07 | Outpatient (REF) | payer OTHER ==
[2024-03-07 13:18] LABS: BASO # 0.1 10^3/uL (0.0-0.2); BASO % 1.1 % (0.0-1.0); EOS # 0.3 10^3/uL (0.0-0.5); EOS % 3.9 % (0.0-3.0); HEMOGLOBIN 14.6 g/dl (13.5-17.5); LYMPH # 1.6 10^3/uL (1.5-5.0); LYMPH % 24.1 % (24.0-44.0); MEAN CORPUSCULAR HGB CONC 34.8 g/dl (32.0-36.5); MEAN CORPUSCULAR VOLUME 89.2 fl (80.0-96.0); MONO # 0.5 10^3/uL (0.0-0.8); MONO % 7.1 % (2.0-8.0); NEUTROPHILS # 4.2 10^3/uL (1.5-8.5); NEUTROPHILS % 63.5 % (36.0-66.0); PLATELET COUNT, AUTOMATED 257 10^3/uL (150-450); RED BLOOD COUNT 4.71 10^6/uL (4.30-6.10); WHITE BLOOD COUNT 6.7 10^3/uL (4.0-10.0)
[2024-03-07 13:23] LABS: ALBUMIN 3.8 G/DL (3.2-5.2); ALKALINE PHOSPHATASE 71 U/L (46-116); ALT/SGPT 38 U/L (7.0-40); AST/SGOT 15 U/L (<34); BILIRUBIN,TOTAL 0.9 MG/DL (0.3-1.2); BLOOD UREA NITROGEN 21 MG/DL (9-23); CALCIUM LEVEL 8.7 MG/DL (8.5-10.1); CARBON DIOXIDE LEVEL 28 MMOL/L (20-31); CHLORIDE LEVEL 108 MMOL/L (98-107); CHOLESTEROL LEVEL 137 MG/DL (<200); CREATININE FOR GFR 1.01 MG/DL (0.70-1.30); GLOMERULAR FILTRATION RATE > 60.0 (>56); GLUCOSE, FASTING 104 MG/DL (60-100); HDL CHOLESTEROL 42.8 MG/DL (>40); LDL CHOLESTEROL 66.6 MG/DL (<100); NON-HDL-C 94.2 MG/DL; POTASSIUM SERUM 4.4 MMOL/L (3.5-5.1); PSA SCREENING 1.34 NG/ML (< 4.00); SODIUM LEVEL 139 MMOL/L (136-145); TOTAL PROTEIN 6.5 G/DL (5.7-8.2); TRIGLYCERIDES LEVEL 138 MG/DL (<150)
[2024-03-07 13:24] LABS: THYROID STIMULATING HORMONE 2.476 uIU/ML (0.55-4.78)
[2024-03-07 13:25] LABS: TOTAL 25(OH) VITAMIN D 55.2 NG/ML (20.0-100.0)
[2024-03-07 13:51] LABS: CREATININE, URINE 99.8 MG/DL; MALB URINE SIEMENS < 3.0 MG/L
[2024-03-07 14:04] LABS: HEMOGLOBIN A1c 5.4 % (4.0-6.0)
== END ==
LOC: M LABDRWAD 12:25
PROVIDERS: ATTEND Nurse Practitioner Family
DX: I10 Essential (primary) hypertension (principal); E78.5 Hyperlipidemia, unspecified; R73.01 Impaired fasting glucose; N40.0 Benign prostatic hyperplasia without lower urinary tract symptoms